=== PATIENT | female | born 1990 | race Caucasian/White ===

== ENCOUNTER 2019-07-14 12:01 | Day surgery (SDC) | payer OTHER ==
[2019-07-14] MEDS ORDERED: CEFAZOLIN SODIUM IN 0.9 % NACL 2 GM/100 ML BAG IV ONE (12:18)
[2019-07-14] MEDS ORDERED: LACTATED RINGERS 1,000 ML IV ONE (12:28)
[2019-07-14 12:33] LABS: HCG UR QUAL NEGATIVE
--- NOTE | 2019-07-14 14:36 | ANESTHESIA ---
Pre-Anesthesia VS, & Labs - Diagnosis right hallux valgus - Procedure right bunion correction Vital Signs: Temp Pulse Resp BP Pulse Ox 36.2 C L 72 16 129/92 H 99 07/14/19 12:14 07/14/19 12:14 07/14/19 12:14 07/14/19 12:14 07/14/19 12:14 Height 5 ft 1 in Weight (kg) 57.61 kg - NPO >8 hours - Is Patient ?: No Home Medications and Allergies Home Medications: Ambulatory Orders Albuterol Sulfate [Proair Hfa Inhaler] 1 - 2 puffs INH Q4H PRN 07/05/19 Carboxymethylcellulose Sodium [Refresh Tears] 15 ml OP DAILY 07/05/19 Fluticasone [Flonase] 1 sprays ERIC DAILY 07/05/19 Fluticasone/Salmeterol [Advair 100-50 Diskus] 1 each IH DAILY 07/05/19 Levonorgestrel-Ethin Estradiol [Levonor-Eth Estrad 0.15-0.03] 1 each PO DAILY 07/05/19 Montelukast [Singulair] 10 mg PO QPM 07/05/19 Sodium Fluoride [Prevident 5000] 100 ml DT DAILY 07/05/19 Albuterol Sulfate [Proair Hfa Inhaler] 1 - 2 puffs INH Q4H PRN 07/05/19 Carboxymethylcellulose Sodium [Refresh Tears] 15 ml OP DAILY 07/05/19 Fluticasone [Flonase] 1 sprays ERIC DAILY 07/05/19 Fluticasone/Salmeterol [Advair 100-50 Diskus] 1 each IH DAILY 07/05/19 Levonorgestrel-Ethin Estradiol [Levonor-Eth Estrad 0.15-0.03] 1 each PO DAILY 07/05/19 Montelukast [Singulair] 10 mg PO QPM 07/05/19 Sodium Fluoride [Prevident 5000] 100 ml DT DAILY 07/05/19 Allergies/Adverse Reactions: Allergies Allergy/AdvReac Type Severity Reaction Status Date / Time No Known Drug Allergies Allergy Verified 07/14/19 12:41 Anes History & Medical History - Anesthetic History Anesthesia Complications: reports: No previous complications - Medical History Cardiovascular: reports: None Pulmonary: reports: Other (seasonal allergies, on inhalers for, denies athsma) Gastrointestinal: reports: None Urinary: reports: None Musculoskeletal: reports: Other Endocrine/Autoimmune: reports: None Skin: reports: None Exam General: Alert Dental: WNL Mouth Opening: Greater than 4 Fingerbreadths Neck Mobility: Normal Mallampati classification: II Thyromental Distance: greater than 6 cm Respiratory: Lungs clear Cardiovascular: Regular rate, Normal S1, Normal S2 Plan Anesthesia Type: General Consent for Procedure(s) Verified and Reviewed: Yes Code Status: Attempt Resuscitation ASA classification: 2-Mild systemic disease Is this case an emergency?: No
[2019-07-14] MEDS ORDERED: BUPIVACAINE 0.25% PF 30 ML VIAL ONE (15:11)
[2019-07-14] MEDS ORDERED: KETOROLAC 30 MG/ML VIAL IVP ONE (15:12)
[2019-07-14] MEDS ORDERED: ACETAMINOPHEN 1,000 MG/100 ML 100 ML IV ONE (15:12)
[2019-07-14] MEDS ORDERED: LIDOCAINE-MPF 2% 5 ML VIAL IM ONE (15:12)
[2019-07-14] MEDS ORDERED: PROPOFOL 200 MG/20 ML VIAL IVP ONE (15:12)
[2019-07-14] MEDS ORDERED: fentaNYL 100 MCG/2 ML VIAL IVP ONE (15:12)
[2019-07-14] MEDS ORDERED: MIDAZOLAM 2 MG/2 ML VIAL IVP ONE (15:12)
[2019-07-14] MEDS ORDERED: DEXAMETHASONE 4 MG/ML VIAL IVP ONE (15:12)
[2019-07-14] MEDS ORDERED: ONDANSETRON 4 MG/2 ML VIAL IVP ONE (15:12)
[2019-07-14] MEDS ORDERED: BUPIVACAINE 0.25% PF 30 ML VIAL SUBQ ONE (15:45)
[2019-07-14] MEDS ORDERED: ONDANSETRON 4 MG/2 ML VIAL IVP PRN (17:19)
[2019-07-14] MEDS ORDERED: oxyCODONE 5 MG TABLET PO PRN (17:19)
--- NOTE | 2019-07-14 17:22 | OPERATIVE REPORT ---
Operative Report - Other Other Information/Narrative: Date of Surgery: 14 July 2019 Pre-Op Diagnosis: Right hallux valgus, congenital Procedure: Right first metatarsal scarf osteotomy, silver osteotomy, modified Boyle procedure for hallux valgus correction Postop Diagnosis: Same Primary Surgeon: Howard Alberto Secondary Surgeon: None Complications: None Tourniquet Time: 95 minutes EBL: 5 cc Bunion Postoperative Plan: 0-2 weeks: No weight bearing leave dressing intact 2 week appt: Non weight bearing xrays, sutures out, bunion brace applied 2-4 weeks: No weight bearing, may remove bunion brace for showers, no soaking incision 4 week appt: Reassess, provide forefoot offloading hard soled shoe 4-8 weeks: WBAT in forefoot offloading shoe, continue to use bunion brace 8 week stefany: Weight bearing xrays, may transition to normal shoe Indication For Surgery: 29-year-old female who had a bunion since childhood. It became painful a few years ago and the pain has not responded to nonoperative treatment. She desired to move forward with surgery. The risks, benefits, and alternatives were discussed. Risks include pain, bleeding, infection, damage to nearby structures, numbness, recurrence of bunion, hallux varus, lack of symptom relief, implant complications, nonunion, need for further surgery, DVT, PE, stroke, and . Written consent was obtained. Procedure in Detail: The patient was met in the pre-operative hold area on the day of the procedure. The operative extremity was signed and questions were answered. The patient was brought to the operating room and a general anesthetic was administered. Supine position was used and bony prominences were padded. Standard prepping and draping was performed. A time out confirmed patient identification, laterality, procedure, allergies, antibiotics, and images. An Esmarch was used to exsanguinate the limb and the tourniquet was el evated to 250 mmHg. A 3 cm incision was made between the first and second metatarsal heads and blunt dissection was carried down. The neurovascular bundle was protected with a dull retractor. I identified the adductor tendon and the intermetacarpal ligament and sharply resected them from their attachments on the first ray. I took care to leave the flexor hallucis brevis attached to the lateral sesamoid. I incised the capsule between the sesamoid and the metacarpal head. I then pie crusted the lateral capsule between the metacarpal head and the proximal phalanx. A varus force was then applied to the toe and the toe freely moved in the varus. This wound was then packed with gauze A direct medial incision was made over the first metatarsal from the metatarsal phalangeal joint to just short of the tarsometatarsal joint. Blunt dissection was used to identify the dorsal cutaneous nerve and this was protected throughout the case. Full-thickness skin flaps were created. A full-thickness longitudinal capsular incision was made in the first MTP joint and the capsule was dissected off of the metatarsal head ensuring to preserve the plantar capsular attachments with the accompanying blood supply. A periosteal elevator was used to free the periosteum along the medial shaft. A silver osteotomy was then performed just off the cartilage surface ensuring to leave a medial shoulder. The distal dorsal transverse osteotomy was then made perpendicular to the first metatarsal shaft starting centrally and the metatarsal head. The total sawblade was left in place and the plantar proximal transverse osteotomy was made parallel to this ensuring to be within metaphyseal bone. The longitudinal osteotomy was then made parallel to the walking surface of the foot. A second proximal transverse osteotomy was made and a 4 mm chunk of bone was removed. A freer elevator was used to release the periosteum on the lateral surface to allow for the shift. I then shifted the plantar fragment laterally and pulled the dorsal fragment medially. This was then clamped in place and imaging confirmed excellent position. The plantar capsule was pulled on and the sesamoids reduced nicely. Satisfied with this position, countersunk 2.0 millimeter screws were placed proximally and distally confirming excellent purchase. The clamp was then removed and the fixation was stable. The medial shelf of bone was then excised with a sagittal saw. The wound was irrigated copiously. The medial shelf fragment was then flipped and inverted and placed plantarly at the osteotomy site. Images were again taken. I then reassessed the toe and found that there was good spread between the first and second toe and determined that an Willie osteotomy was not necessary. I then excised the excess medial capsule and performed a vest over pants plication and derotational capsular closure using 2-0 fiberwire, burying the knots between layers. This was backed up with multiple 0 Vicryl sutures. The periosteal layer was then closed with 0 Vicryl. The skin was closed with 3-0 Vicryl in the subdermis and 3-0 nylon in the skin. 20 cc of quarter percent Marcaine without epinephrine was placed deep to the incision. A sterile bunion dressing was applied. The patient was awakened and transferred to the recovery room.
[2019-07-14] MEDS: HYDROmorphone 1 MG/ML CARPUJECT ONE ×2 (17:33→17:43)
[2019-07-14] MEDS ORDERED: oxyCODONE 5 MG TABLET ONE (18:06)
[2019-07-14 19:37] VITALS: BP 112/66
== END 2019-07-14 19:50 | disposition home or self-care (01) ==
LOC: SDS 12:01 → ICU 18:26 → SDS 19:50
PROVIDERS: ATTEND Orthopaedic Surgery
PROC: 0QBN0ZZ Excision of Right Metatarsal, Open Approach (ICD-10-PCS; 2019-07-14)
PROC: 0QSN04Z Reposition Right Metatarsal with Internal Fixation Device, Open Approach (ICD-10-PCS; principal; 2019-07-14 13:00)
DX: Q66.6 Other congenital valgus deformities of feet (principal); J30.2 Other seasonal allergic rhinitis; Z79.1 Long term (current) use of non-steroidal anti-inflammatories (NSAID); Z79.899 Other long term (current) drug therapy; Z79.51 Long term (current) use of inhaled steroids; Z82.69 Family history of other diseases of the musculoskeletal system and connective tissue
CPT/HCPCS: 81025

== ENCOUNTER 2022-02-11 10:03 | Outpatient (CLI) | payer OTHER ==
--- NOTE | 2022-02-12 16:15 | Mammography Report ---
BILATERAL DIGITAL SCREENING MAMMOGRAM 3D/2D: 02/11/2022 CLINICAL: Baseline exam Routine screening. Family history of breast cancer. No prior exams were available for comparison. There are scattered fibroglandular elements in both br easts. No significant masses, calcifications, or other findings are seen in either breast. IMPRESSION: NEGATIVE There is no mammographic evidence of malignancy. A 1 year screening mammogram is recommended. Based on Tyrer-Cuzick model (a risk assessment model), the patient's lifetime risk is 22.1% and her 1 0 year risk is 1.4%. If a patient has an elevated risk, a more comprehensive evaluation should be con sidered and/or a referral to a genetic counselor. The [employer], [employer], and NCCN Guidelines advise the consideration of Breast MRI as an adjunct to screening mammog ita in patients whose "Lifetime risk to develop breast cancer" is 20% or higher. This exam was interpreted at Station ID: [id number]. NOTE: For mammograms, a report in lay terms will be sent to the patient. Approximately 15% of breast malignancies will not be visualized mammographically. In the management of a palpable breast mass, a negative mammogram must not discourage biopsy of a clinically suspicious lesion. Electronically Signed By: Lor [email or web address]:02/11/2022 16:17:31 ACR BI-RADS Category 1: Negative 3341F PARENCHYMAL PATTERN: (A) - The breast(s) demonstrate(s) scattered fibroglandular densities. BI-RADS CATEGORY: (1) - 1 RECOMMENDATION: (ANNUAL) - Recommend routine annual screening mammography. [id number] 1 year screening LATERALITY: (B)
== END 2022-02-11 10:04 | disposition home or self-care (01) ==
LOC: DI.N 10:03
PROVIDERS: ATTEND Family Medicine
DX: Z12.31 Encounter for screening mammogram for malignant neoplasm of breast (principal); Z80.3 Family history of malignant neoplasm of breast